=== PATIENT | female | born 1945 | race Caucasian/White ===

== ENCOUNTER 2023-05-09 13:48 | Emergency (ER) | payer MEDICARE ==
[~2023-05-09] VITALS: Ht 160 cm; Wt 81.6 kg
[2023-05-09 13:50] VITALS: O2SAT 99
[2023-05-09] MEDS ORDERED: TRAMADOL HCL 50 MG TAB PO ONE (14:15)
[2023-05-09] MEDS ORDERED: ACETAMINOPHEN 325 MG TAB PO ONE (14:15)
== END 2023-05-09 15:40 | disposition home or self-care (01) ==
LOC: ER 13:59
DX: M25.561 Pain in right knee (principal); I10 Essential (primary) hypertension; J44.9 Chronic obstructive pulmonary disease, unspecified; N31.9 Neuromuscular dysfunction of bladder, unspecified
CPT/HCPCS: 99283